=== PATIENT | female | born 1960 | race American Indian/Alaskan Native ===

== ENCOUNTER 2016-11-29 08:02 | Outpatient (CLI) | payer OTHER ==
--- NOTE | 2016-11-29 10:14 | Mammography Report ---
BILATERAL MAMMOGRAM with CAD: HISTORY:Cancer screening. Comparison study is dated November 10, 2015. FINDINGS: The breasts are almost entirely fat (<25% glandular). No mass, distortion, suspicious calcification, or skin change is seen. IMPRESSION: Negative mammogram. There is no mammographic evidence of malignancy. RECOMMENDATION: Follow-up per ACS guidelines. BI-RADS CATEGORY: 1 = Negative ACR BI-RADS MAMMOGRAPHIC CODES: 0 = Needs additional imaging evaluation; 1 = Negative; 2 = Benign; 3 = Probably benign; 4 = Suspicious; 5 = Malignant; 6 = Known biopsy-proven malignancy COMMENT: 1. Dense breast tissue, i.e., adenosis, fibrocystic changes, etc., may obscure an underlying neoplasm. 2. Approximately 10% of cancers are not detected with mammography. 3. A negative mammography report should not delay biopsy if a clinically suspicious mass is present. COMMENT: Patient follow-up letters are generated in [employer].
== END 2016-11-29 08:03 | disposition home or self-care (01) ==
LOC: SPVWC 08:02
PROVIDERS: ATTEND Internal Medicine
DX: Z12.31 Encounter for screening mammogram for malignant neoplasm of breast (principal)
CPT/HCPCS: 77067; G0202

== ENCOUNTER 2018-02-23 08:18 | Outpatient (CLI) | payer OTHER ==
--- NOTE | 2018-02-23 11:58 | Mammography Report ---
BILATERAL DIGITAL SCREENING MAMMOGRAM with CAD: 02/23/18 08:18:00 CLINICAL: Routine screening. COMPARISON: 11/29/16 FINDINGS: There are bilateral scattered areas of fibroglandular density.No mass, architectural distortion or suspicious calcifications. IMPRESSION: No mammographic evidence of malignancy. BI-RADS CATEGORY: 1 -- Negative RECOMMENDATION: Routine mammographic screening in one year. COMMENT: Patient follow-up letters are generated by our [employer] application.
== END 2018-02-23 08:19 | disposition home or self-care (01) ==
LOC: SPVWC 08:18
PROVIDERS: ATTEND Internal Medicine
DX: Z12.31 Encounter for screening mammogram for malignant neoplasm of breast (principal); Z88.7 Allergy status to serum and vaccine
CPT/HCPCS: 77067

== ENCOUNTER 2019-04-05 10:54 | Outpatient (CLI) | payer OTHER ==
--- NOTE | 2019-04-05 15:09 | Mammography Report ---
DIGITAL SCREENING MAMMOGRAM WITH CAD, 04/05/2019 INDICATION: Routine screening mammography. TECHNIQUE: Digital bilateral 2D mammography was obtained in the craniocaudal and mediolateral obliq ue projections. This examination was interpreted with the benefit of Computer-Aided Detection analysi s. COMPARISON: 02/23/2018 FINDINGS: Breast Density: The breasts are heterogeneously dense, which may obscure small masses. There is no evidence of dominant mass, suspicious calcifications or architectural distortion in eithe r breast. IMPRESSION: No mammographic evidence of malignancy. Follow up recommendation: Routine yearly BI-RADS Category 1: Negative. A "normal" or negative report should not discourage follow up or biopsy of a clinically significant f inding. A written summary of these findings will be mailed to the patient. The patient will be entered into a mammography reporting system which will generate a reminder letter for the patient's next appointmen t at the appropriate interval. The [employer] recommends yearly mammograms starting at age 40 and continuing as l frances as a woman is in good health. Breast MRI is recommended for women with an approximate 20-25% or greater lifetime risk of breast cancer, including women with a strong family history of breast or ova toro cancer or who have been treated for Hodgkin's disease. Signer Name: Humble Valdez MD Signed: 04/05/2019 3:04 PM Workstation Name: [id number]
== END 2019-04-05 10:55 | disposition home or self-care (01) ==
LOC: SPVWC 10:54
PROVIDERS: ATTEND Internal Medicine
DX: Z12.31 Encounter for screening mammogram for malignant neoplasm of breast (principal)
CPT/HCPCS: 77067

== ENCOUNTER 2020-01-31 07:54 | Emergency (ER) | payer OTHER ==
[2020-01-31 09:20] VITALS: BP 112/61
--- NOTE | 2020-01-31 09:59 | XRay Report ---
HISTORY:MAIN COMPARISON: None. TECHNIQUE: AP lateral and obliques views were obtained FINDINGS: Bones: Comminuted fracture of the patella is noted. Suprapatellar effusion is present.. Joint spaces: Maintained. Soft tissues: No significant abnormality. Additional findings: None. IMPRESSION: 1. Fractured patella Signer Name: Jl Valdes MD Signed: 01/31/2020 9:54 AM Workstation Name: [id number]
[2020-01-31] MEDS ORDERED: fentaNYL 100 MCG/2 ML INJ IV ONE (11:18)
[2020-01-31] MEDS ORDERED: ONDANSETRON 4 MG/2 ML INJ IV ONE (11:18)
[2020-01-31] MEDS ORDERED: KETOROLAC 30 MG/1 ML INJ IV ONE (11:18)
--- NOTE | 2020-01-31 11:29 | Emergency Department Report ---
HPI - General Chief Complaint: Extremity Injury, Lower Time Seen by Provider: 01/31/20 11:17 - HPI HPI: Room 4 The patient is a 59-year-old female present with a chief complaint of left knee pain. The patient states she was walking in a store when she believes she slipped on some orange juice and fell landing on her left knee. Patient denies loss of consciousness. Patient currently only complains of pain in the left knee and gives it a score of 7/10. Patient denies pain elsewhere ED Past Medical Hx - Past Medical History Previous Medical History?: Yes Hx GERD: Yes - Surgical History Past Surgical History?: No - Family History Family history: no significant - Social History Smoking Status: Never Smoker Substance Use Type: None - Medications Home Medications: Home Medications Medication Instructions Recorded Confirmed Last Taken Type HYDROcodone/APAP 5-325 [[place] 1 - 2 each PO Q6HR PRN #30 tablet 01/31/20 Unknown Rx 5/325] ED Review of Systems ROS: Stated complaint: L KNEE PAIN Other details as noted in HPI Constitutional: no symptoms reported Respiratory: no symptoms reported Endocrine: no symptoms reported Musculoskeletal: arthralgia Physical Exam - Physical Exam Vital Signs: Vital Signs 01/31/20 01/31/20 09:05 09:19 Temperature 98.7 F Pulse Rate 88 Respiratory 20 Rate Blood Pressure 112/61 [Left] O2 Sat by Pulse 98 Oximetry Physical Exam: GENERAL: The patient is well-developed well-nourished female lying on stretcher not appearing to be in acute distress. [] HEENT: Normocephalic. Atraumatic. Extraocular motions are intact. Patient has moist mucous membranes. NECK: Supple. Trachea midline CHEST/LUNGS: Clear to auscultation. There is no respiratory distress noted. HEART/CARDIOVASCULAR: Regular. There is no tachycardia. There is no gallop rub or murmur. 2+ left DP ABDOMEN: Abdomen is soft, nontender. Patient has normal bowel sounds. There is no abdominal distention. SKIN: There is no rash. There is no edema. There is no diaphoresis. No lacerations appreciated NEURO: The patient is awake, alert, and oriented. The patient is cooperative. The patient has no focal neurologic deficits. The patient has normal speech MUSCULOSKELETAL: There is tenderness and swelling to the left knee. ED Course Vital Signs 01/31/20 01/31/20 09:05 09:19 Temperature 98.7 F Pulse Rate 88 Respiratory 20 Rate Blood Pressure 112/61 [Left] O2 Sat by Pulse 98 Oximetry ED Medical Decision Making - Radiology Data Radiology results: report reviewed (Left knee x-ray), image reviewed (Left knee x-ray) interpreted by me: Left knee [id number] fracture Findings [facility] [address] [place] [address] XRay Report Signed Patient: AB OCASIO MR#: [id number] : 1960 Acct:[id number] Age/Sex: 59 / F ADM Date: 01/31/20 Loc: ED Attending Dr: Ordering Physician: ED MD ROCKY Date of Service: 01/31/20 Procedure(s): XR knee 3V LT Accession Number(s): [id number] cc: ED MD ROCKY Fluoro Time In Minutes: HISTORY:MAIN COMPARISON: None. TECHNIQUE: AP lateral and obliques views were obtained FINDINGS: Bones: Comminuted fracture of the patella is noted. Suprapatellar effusion is present.. Joint spaces: Maintained. Soft tissues: No significant abnormality. Additional findings: None. IMPRESSION: 1. Fractured patella Signer Name: Jl Valdes MD Signed: 01/31/2020 9:54 AM Workstation Name: [id number] Transcribed By: WG Dictated By: Jl Valdes MD Electronically Authenticated By: Jl Valdes MD Signed Date/Time: 01/31/20953 DD/ 2 TD/TT: - Differential Diagnosis Patella fracture, knee contusion, tibial plateau fracture Critical care attestation.: If time is entered above; I have spent that time in minutes in the direct care of this critically ill patient, excluding procedure time. ED Disposition Clinical Impression: Left patella fracture Disposition: DC-01 TO HOME OR SELFCARE Is pt being admited?: No Does the pt Need Aspirin: No Condition: Stable Instructions: Patellar Fracture (ED) Additional Instructions: Return to the emergency department should you develop worsening symptoms, inability to tolerate food or liquids, high fever or any other concerns Prescriptions: HYDROcodone/APAP 5-325 [[place] 5/325] 1 - 2 each PO Q6HR PRN #30 tablet PRN Reason: Pain Referrals: CASSANDRA SAAVEDRA MD [Staff Physician] - 3-5 Days Time of Disposition: 11:29
== END 2020-01-31 12:05 | disposition home or self-care (01) ==
LOC: ED 07:54
DX: S82.042A Displaced comminuted fracture of left patella, initial encounter for closed fracture (principal); K21.9 Gastro-esophageal reflux disease without esophagitis; Z79.899 Other long term (current) drug therapy; Z88.8 Allergy status to other drugs, medicaments and biological substances; W01.0XXA Fall on same level from slipping, tripping and stumbling without subsequent striking against object, initial encounter; Y93.89 Activity, other specified; Y92.89 Other specified places as the place of occurrence of the external cause; Y99.8 Other external cause status
CPT/HCPCS: 29505; 73562; 96374; 96375; 99284; J1885; J2405; J3010

== ENCOUNTER 2020-09-11 08:00 | Outpatient (CLI) | payer OTHER ==
--- NOTE | 2020-09-11 13:56 | Mammography Report ---
DIGITAL SCREENING MAMMOGRAM WITH CAD, 09/11/2020 CLINICAL INFORMATION / INDICATION: Routine screening mammography. SCREENING MAMMOGRAM TECHNIQUE: Digital bilateral 2D mammography was obtained in the craniocaudal and mediolateral obliqu e projections. This examination was interpreted with the benefit of Computer-Aided Detection analysis . COMPARISON: 04/05/2019, 02/23/2018 FINDINGS: Breast Density: There are scattered areas of fibroglandular density. No dominant mass, suspicious calcifications, or architectural distortion in either breast. IMPRESSION: No mammographic evidence of malignancy. Follow up recommendation: Routine yearly BI-RADS Category 1: Negative. A "normal" or negative report should not discourage follow up or biopsy of a clinically significant f inding. A written summary of these findings will be mailed to the patient. The patient will be entered into a mammography reporting system which will generate a reminder letter for the patient's next appointmen t at the appropriate interval. The [employer] recommends yearly mammograms starting at age 40 and continuing as l frances as a woman is in good health. Breast MRI is recommended for women with an approximate 20-25% or greater lifetime risk of breast cancer, including women with a strong family history of breast or ova toro cancer or who have been treated for Hodgkin's disease. Signer Name: Pacheco Bear MD Signed: 09/11/2020 1:52 PM Workstation Name: [id number]
== END 2020-09-11 08:01 | disposition home or self-care (01) ==
LOC: SPVWC 08:00
PROVIDERS: ATTEND Internal Medicine
DX: Z12.31 Encounter for screening mammogram for malignant neoplasm of breast (principal)
CPT/HCPCS: 77067

== ENCOUNTER 2020-10-02 06:47 | Day surgery (SDC) | payer OTHER ==
[2020-10-02] MEDS ORDERED: SODIUM CHLORIDE 0.9% 1000 ML 1,000 ML IV SCH (07:00)
--- NOTE | 2020-10-02 07:45 | Anesthesia Day of Surgery ---
Anesthesia Day of Surgery - Day of Surgery Patient Examined: Yes Patient H&P Reviewed: Yes Patient is NPO: Yes
--- NOTE | 2020-10-02 07:45 | Anesthesia Consultation ---
Anesthesia Consult and Med Hx Date of service: 10/02/20 - Airway Anesthetic Teeth Evaluation: Good ROM Head & Neck: Adequate Mental/Hyoid Distance: Adequate Mallampati Class: Class II Intubation Access Assessment: Probably Good - Pre-Operative Health Status ASA Pre-Surgery Classification: ASA3 Proposed Anesthetic Plan: MAC - Pulmonary Hx Smoking: No Hx Asthma: No Hx Respiratory Symptoms: No SOB: No COPD: No Home Oxygen Therapy: No Hx Pneumonia: No Hx Sleep Apnea: Yes - Cardiovascular System Hx Hypertension: No Hx Coronary Artery Disease: No Hx Heart Attack/AMI: No Hx Angina: No Hx Percutaneous Transluminal Coronary Angioplasty (PTCA): No Hx Cardia Arrhythmia: No Hx Pacemaker: No Hx Internal Defibrillator: No Hx Valvular Heart Disease: No Hx Heart Murmur: No Hx Peripheral Vascular Disease: Yes (clots in the legs travelled to lungs) - Central Nervous System Hx Neuromuscular Disorder: No Hx Seizures: No CVA: No Hx Back Pain: Yes Hx Psychiatric Problems: No - Gastrointestinal Hx Ulcer: No Hx Gastroesophageal Reflux Disease: Yes - Endocrine Hx Renal Disease: No Hx End Stage Renal Disease: No Hx Cirrhosis: No Hx Liver Disease: No Hx Insulin Dependent Diabetes: No Hx Non-Insulin Dependent Diabetes: No Hx Thyroid Disease: No Hx Hypothyroidism: No Hx Hyperthyroidism: No - Hematic Hx Anemia: No Hx Sickle Cell Disease: No - Other Systems Hx Alcohol Use: No Hx Substance Use: No Hx Cancer: No Hx Obesity: Yes
[2020-10-02] MEDS ORDERED: PHENYLEPHRINE/NS 1,000 MCG/10 ML SYRINGE (OR USE) IV ONE (08:15)
[2020-10-02] MEDS ORDERED: LIDOCAINE MPF (2%) 20 MG/1 ML VIAL 5 ML ONE (08:19)
[2020-10-02] MEDS ORDERED: propofoL 200 MG/20 ML VIAL IV ONE ×2 (08:19→08:41)
--- NOTE | 2020-10-02 09:07 | Procedure Note ---
Date of procedure: 10/02/20 Pre-op diagnosis: GERD/ Colon Polyp Screening/ F/H/o Cancer (Aunt and Father) Post-op diagnosis: other (Mild to Moderate Erosive Esophagitis/ Gastritis/ no Peptic Ulcer disease note/ Few Recto-Sigmoid Polyps (possibly Hyperplastic)Moderate,Left colon Diverticuli/ No Internal Hemorrhoids noted) Procedure: EGD with Cold Biopsy/ Colonoscopy with Cold Biopsy Anesthesia: MAC Surgeon: DOMINIC MOSLEY Estimated blood loss: minimal Pathology: list Specimen disposition: to lab Condition: stable Disposition: same day (Treat with PPI and encourage fiber intake. Avoid aspirin and NSAID and anticoagulants for 3 days; otherwise resume home medication and follow up in 1 to 2 weeks ([phone]).)
--- NOTE | 2020-10-02 09:51 | Operative Report ---
PROCEDURE: Colonoscopy. INDICATIONS: This is a 60-year-old -[place] female who had an EGD done prior to the colonoscopy because of GERD symptoms. EGD showed [id number] erosive esophagitis and gastritis, but no peptic ulcer disease. The patient does give a family history of cancer. The patient's aunt had breast cancer and father also had cancer of some form. DESCRIPTION OF PROCEDURE: Colonoscopy was done after getting informed consent with MAC anesthesia. Initial rectal exam was unremarkable. Instrument was passed through the rectum onto the cecum, which was identified with ileocecal valve and appendiceal orifice. The cecum was also examined on the retroverted view and the terminal ileum was briefly intubated. No significant pathology was noted in the proximal colon involving the cecum and ascending colon or in the transverse colon. The descending colon and the sigmoid colon also showed normal mucosa other than for moderate diverticular disease that was noted throughout the left colon and there were several small polyps, possibly hyperplastic in the rectosigmoid area that were removed by cold biopsy with minimal bleeding and there were no internal hemorrhoids noted on the retroverted view. ASSESSMENT: Colon polyp screening, family history of cancer. Aunt had breast cancer a few rectosigmoid, small polyps, possibly hyperplastic that were removed. Moderate left colon diverticular disease, no internal hemorrhoids. There was minimal bleeding associated with the procedure. No complications associated with the procedure. The patient will be encouraged to take fiber supplements and avoid aspirin and aspirin-related products and follow up in the office in 1-2 weeks' time. The patient will also be placed on PPI because of the EGD findings of mild to moderate erosive esophagitis and gastritis. The procedure was done in the GI lab with assistance of the GI lab team, which included RN, Renée Williamson; Fortino cerrato and with assistance of anesthesia. JOB# [id number] JON/MALINDA
[2020-10-02 10:04] VITALS: BP 109/65
--- NOTE | 2020-10-02 10:07 | Post Anesthesia Evaluation ---
- Post Anesthesia Evaluation Patient Participated: Yes Airway Patent: Yes Stable Respiratory Function: Yes Nausea/Vomiting: No Temp > 96.8F: Yes Pain Manageable: Yes Adequeate Hydration: Yes Anesthesia Complications: No
--- NOTE | 2020-10-02 12:00 | Operative Report ---
PROCEDURE: Esophagogastroduodenoscopy with biopsy. INDICATIONS: This is a 60-year-old female who has been having GERD symptoms. EGD was done to assess for any significant upper GI pathology. DESCRIPTION OF PROCEDURE: The procedure was done after getting informed consent with MAC anesthesia. Instrument was passed through the hypopharynx into the esophagus, which showed [id number] erosive esophagitis. Biopsy was done from the distal esophagus to assess for the severity of the erosive esophagitis as well as from the mid esophagus to assess for possible eosinophilic esophagitis. The stomach did not show any ulcers in the straight or the retroverted view. The pylorus was patent. The duodenum in the first and the second portion appeared normal. Biopsy was done from the gastric antrum, gastric body and angular incisura to rule out for H. pylori and atrophic gastritis. There was no peptic ulcer disease noted. The pylorus was patent. There was minimal bleeding associated with the procedure. No complications associated with the procedure. ASSESSMENT: Gastroesophageal reflux disease symptoms, mild to moderate erosive esophagitis, gastritis, no peptic ulcer disease noted. PLAN: To treat the patient with PPI, have the patient avoid aspirin and aspirin-related products for the next few days and to do a colonoscopy ____ as part of colon polyp screening. Procedure was done in the GI lab with assistance of the GI lab team, which included RN, Renée Williamson; Horacio cerrato and with assistance of anesthesia. JOB# [id number] JON/MALINDA
== END 2020-10-02 06:48 | disposition home or self-care (01) ==
LOC: GIO 06:47
DX: Z12.11 Encounter for screening for malignant neoplasm of colon (principal); K21.00 Gastro-esophageal reflux disease with esophagitis, without bleeding; K57.30 Diverticulosis of large intestine without perforation or abscess without bleeding; K29.70 Gastritis, unspecified, without bleeding; I73.9 Peripheral vascular disease, unspecified; E66.9 Obesity, unspecified; Z80.3 Family history of malignant neoplasm of breast; Z80.8 Family history of malignant neoplasm of other organs or systems; Z79.899 Other long term (current) drug therapy; Z68.37 Body mass index [BMI] 37.0-37.9, adult
CPT/HCPCS: 43239; 45380; 88305; 88342; J2370; J2704; J7030

== ENCOUNTER 2021-09-14 08:32 | Outpatient (CLI) | payer OTHER ==
--- NOTE | 2021-09-15 11:04 | Mammography Report ---
DIGITAL SCREENING MAMMOGRAM WITH CAD, 09/14/2021 CLINICAL INFORMATION / INDICATION: Routine screening mammography. SCREENING MAMMO Z12.31 TECHNIQUE: Digital bilateral 2D mammography was obtained in the craniocaudal and mediolateral obliqu e projections. This examination was interpreted with the benefit of Computer-Aided Detection analysis . COMPARISON: 09/11/2020 and 04/05/2019 FINDINGS: Breast Density: There are scattered areas of fibroglandular density. No dominant mass, suspicious calcifications, or architectural distortion in either breast. IMPRESSION: No mammographic evidence of malignancy. Follow up recommendation: Routine yearly BI-RADS Category 1: NEGATIVE A "normal" or negative report should not discourage follow up or biopsy of a clinically significant f inding. A written summary of these findings will be mailed to the patient. The patient will be entered into a mammography reporting system which will generate a reminder letter for the patient's next appointmen t at the appropriate interval. The [employer] recommends yearly mammograms starting at age 40 and continuing as l frances as a woman is in good health. Breast MRI is recommended for women with an approximate 20-25% or greater lifetime risk of breast cancer, including women with a strong family history of breast or ova toro cancer or who have been treated for Hodgkin's disease. Signer Name: Jigar Whitley MD Signed: 09/15/2021 9:52 AM Workstation Name: [id number]
== END 2021-09-14 08:33 | disposition home or self-care (01) ==
LOC: SPVWC 08:32
PROVIDERS: ATTEND Internal Medicine
DX: Z12.31 Encounter for screening mammogram for malignant neoplasm of breast (principal)
CPT/HCPCS: 77067